=== PATIENT | male | born 1940 | race Caucasian/White ===

== ENCOUNTER 2023-10-29 23:02 | Observation (INO) ==
[2023-10-29] MEDS ORDERED: SODIUM CHLORIDE 0.9% 1,000 ML IV SCH (23:45)
[2023-10-30] LABS: Basophils # (auto) 0.03 K/uL (0.00-0.20); Basophils % (auto) 0.5 %; Eosinophils # (auto) 0.14 K/uL (0.00-0.50); Eosinophils % (auto) 2.4 %; Hematocrit (blood only) 39.3 % (42.0-52.0); Hemoglobin 13.3 g/dl (14.0-18.0); Immature Granulocytes # (auto) 0.02 K/uL (0.01-0.20); Immature Granulocytes % (auto) 0.3 %; Lymphocytes # (auto) 0.64 K/uL (1.20-3.40); Lymphocytes % (auto) 10.9 %; Mean Corpuscular Hemoglobin 30.1 pg (25.0-34.0); Mean Corpuscular Hgb Conc 33.8 g/dL (32.0-36.0); Mean Corpuscular Volume 88.9 fL (80.0-100.0); Mean Platelet Volume 9.9 fL (9.4-12.4); Monocytes # (auto) 0.62 K/uL (0.11-0.59); Monocytes % (auto) 10.5 %; Neutrophils # (auto) 4.43 K/uL (1.40-6.50); Neutrophils % (auto) 75.4 %; Platelet Count 173 K/uL (130-400); RDW Coefficient of Variation 14.1 % (11.5-14.5); RDW Standard Deviation 45.6 fL (36.4-46.3); Red Blood Count 4.42 M/uL (4.70-6.10); White Blood Count 5.88 K/ul (4.8-10.8)
--- NOTE | 2023-10-30 00:35 | Emergency Department Note ---
Impression & Plan Generalized weakness, Fall, CHI (closed head injury) ED Provider Note NAME: JOHN BROWN AGE: 83 SEX: Male INFORMANT: Patient and ED PROVIDER(S): Shaun Walters MD CHIEF COMPLAINT: Fall PLAN: Disposition: admitted Outpatient prescription management: none Referral: none MEDICAL DECISION MAKING: Patient presented with weakness and fall. CT negative. Labs unremarkable except elevation of cardiac troponin. Biofire positive for Covid 19. UA seems more contaminated in light of no symptoms. Event concerning given the weakness, new Covid and elevated troponin. Consulted with Dr. Eldridge for admission. Care/management discussed with: spring encaser Level of care consideration(s): After review of the information above and other included data, I feel the patient requires escalation of care to admission. Triage Nursing notes: reviewed and agree them. Vital Signs: reviewed and remarkable for no significant abnormalities Additional History obtained from: Chronic Medical/Social Conditions affecting care: CAD Prior/ Outside/ External records reviewed: none Differential Diagnosis: Infection, dehydration, metabolic abnormality, hypo/hyperglycemia, electrolyte disturbance, anemia, hypoxia, cardiac sources, intracerebral event, toxicologic, neurologic, as well as other pathologies. Diagnostics, independently interpreted by me: EC lead reveals NSR at 100 bpm. LAD, NSIVCD Cardiac Monitoring: Cardiac monitoring ordered by me: The patient was placed on continuous cardiac monitoring and observed. It revealed a normal sinus rhythm at 94 beats per minute without ectopy or evidence of dysrhythmia. Medical decision rules: none Imaging studies: CXR negative for fx, ptx or PNA Head Ct without traumatic findings. HPI: 83 year old Male arrives for evaluation of a fall.This started just prior to arrival. Patient states that he was out in his wood shed and bent over. He lost his balance and fell forward. Hit the top of his head. Patient also notes a fall last week where he struck the back of his head. Patient felt generally weak and could not get up. All day today he has felt under the weather. He felt like he was coming down with something. The patient also notes the following associated symptoms, He has had a cough. Patient also had 1 episode of vomiting in the ambulance. He states that he was bouncing around quite a bit and that made him stomach sick. The patient has been given Zofran for relieving factors. Current pain is rated as 0/10. Pt denies LOC, headache, fevers, chills, diaphoresis, visual changes, neck pain, chest pain, breathing difficulties, abdominal pain, back pain, melena, hematochezia, urinary symptoms, numbness, focal weakness, lymphadenopathy, rash, or other complaints. PAST MEDICAL HISTORY: See Below, CAD, hypertension PAST SURGICAL HISTORY: See Below, SOCIAL HISTORY: See Below, HOME MEDICATIONS: See Below ALLERGIES: See Below VITALS: See Below PHYSICAL EXAMINATION: GENERAL: Awake, tired-appearing, in no distress HENT: Normocephalic, atraumatic. Oropharynx unremarkable. EYES: Normal conjunctiva. Sclera non-icteric. NECK: Inspection normal. Non-tender. Supple. No nuchal rigidity. FROM. No masses. RESPIRATORY: Clear to auscultation. No wheezes. No rales. Normal respiratory effort. CARDIAC: Normal rate. Normal rhythm. No murmurs. No rubs. Extremities warm and well perfused. Pulses equal. No JVD. GI: Soft, non-distended. No tenderness to palpation. No rebound or guarding. No masses. RECTAL: Deferred. MUSCULOSKELETAL: Atraumatic. Chest examination reveals no tenderness. The back is symmetrical on inspection without obvious abnormality. There is no CVA tenderness to palpation. No joint edema. LOWER EXTREMITIES: Calves are equal size bilaterally and non-tender. No edema. No discoloration. NEURO: Normal sensorium. No sensory or motor deficits noted. SKIN: No rash or jaundice noted. PROCEDURES: none CRITICAL CARE: none OBSERVATION NOTE: none Past Med/Surg History Medical History BPH (benign prostatic hyperplasia) CAD (coronary artery disease) Kidney stones GERD (gastroesophageal reflux disease) Myocardial Infarction Hyperlipidemia Hypertension Surgical History History of colonoscopy History of cystoscopy History of lithotripsy History of basal cell carcinoma (BCC) excision History of squamous cell carcinoma excision History of open reduction and internal fixation (ORIF) procedure History of arthroscopy History of tooth extraction History of cardiac cath Family History Grandmother (Maternal) Family history of diabetes mellitus Sister Breast cancer Father Myocardial infarction Other Cancer Heart disease Denies family history of Ovarian cancer Prostate cancer Lung cancer Colorectal cancer Social History Smoking Status: Never smoker Second Hand Exposure: No; Do You Dip or Chew Tobacco: No; Hx Alcohol Use: No Hx Substance Use: No Preferred Language: Sami Communication Ability: Effective Visual Impairment: No Limitations Airplane Fueler Required: No Beliefs That Will Affect Care: None marital status: Current Living Situation: Spouse current occupational status: employed How many Children do You have: 4 Feels Safe at Home: Yes Childhood Exposure to Second-Hand Smoke: No caffeine: Yes Dental Care, Regularly: Yes Physical Activity Frequency: Does not Exercise Seatbelt Use: always Sunscreen Use: No Assistive Devices: None Allergies Allergies Allergy/AdvReac Type Severity Reaction Status Date / Time No Known Allergies Allergy Verified 08/26/23 09:37 Home Meds Home Medications Medication Instructions Recorded Confirmed cholecalciferol (vitamin D3) 50 1,000 units PO QAM 06/13/19 10/30/23 mcg (2,000 unit) capsule vitamin E 600 unit capsule 400 units PO QAM 06/13/19 10/30/23 ascorbic acid (vitamin C) 1,000 mg 1,000 mg PO QAM 08/29/19 10/30/23 tablet,extended release (Vitamin C ER) folic acid 400 mcg tablet 400 mcg PO QAM 08/29/19 10/30/23 magnesium 250 mg tablet 250 mg PO Q OTHER DAY 08/23/20 10/30/23 metoprolol succinate 100 mg 50 mg PO QAM 07/27/23 10/30/23 tablet,extended release 24 hr zinc 25 mg tablet 25 mg PO QAM 07/27/23 10/30/23 aspirin 81 mg tablet,delayed 81 mg PO DAILY 10/30/23 10/30/23 release Previous Rx's Medication Instructions Recorded pantoprazole 40 mg tablet,delayed 40 mg PO QAM #90 tabs 11/26/22 release atorvastatin 80 mg tablet 80 mg PO QAM #90 tabs 06/10/23 losartan 25 mg tablet 25 mg PO .every other day #45 tabs 08/31/23 nirmatrelvir 300 mg (150 mg See Rx Instructions PO .COMPLEX 10/31/23 x2)-ritonavir 100 mg tablet,dose #30 ea pack (Paxlovid) Results & Data (ED) Vital Signs Vital Signs - 24 hr 10/29/23 23:16 10/29/23 23:16 10/29/23 23:37 Temperature 37.1 C 37.1 C Temperature Source Oral Oral Pulse Rate 96 H 97 H Pulse Rate [Apical] 94 H Pulse Rhythm Regular Pulse Rhythm [Apical] Regular Pulse Strength Normal Pulse Strength [Apical] Normal Respiratory Rate 18 16 Respiratory Effort / Characteristics Non-Labored Non-Labored Respiratory Depth Normal Normal Blood Pressure 99/74 L Blood Pressure [Left Arm] 101/67 Blood Pressure Mean 82 Blood Pressure Mean [Left Arm] 78 Pulse Oximetry 96 96 Oxygen Delivery Method Room Air Room Air Sepsis Recent Fever Within 48 Hours No Sepsis New/Unexplained Change in Mental Status No Sepsis Action Taken by Nursing No Action Required 10/30/23 00:01 Temperature Temperature Source Pulse Rate 92 H Pulse Rate [Apical] Pulse Rhythm Regular Pulse Rhythm [Apical] Pulse Strength Pulse Strength [Apical] Respiratory Rate 18 Respiratory Effort / Characteristics Respiratory Depth Blood Pressure Blood Pressure [Left Arm] Blood Pressure Mean Blood Pressure Mean [Left Arm] Pulse Oximetry 92 Oxygen Delivery Method Room Air Sepsis Recent Fever Within 48 Hours Sepsis New/Unexplained Change in Mental Status Sepsis Action Taken by Nursing Laboratory Data 10/29/23 23:15 10/31/23 05:58 Lab Results 10/29/23 10/30/23 10/30/23 Range/Units 23:15 01:20 01:26 WBC 5.88 (4.8-10.8) K/ul RBC 4.42 L (4.70-6.10) M/uL Hgb 13.3 L (14.0-18.0) g/dl Hct 39.3 L (42.0-52.0) % MCV 88.9 (80.0-100.0) fL MCH 30.1 (25.0-34.0) pg MCHC 33.8 (32.0-36.0) g/dL RDW Std Deviation 45.6 (36.4-46.3) fL RDW Coeff of Michael 14.1 (11.5-14.5) % Plt Count 173 (130-400) K/uL MPV 9.9 (9.4-12.4) fL Immature Gran % (Auto) 0.3 % Neut % (Auto) 75.4 % Lymph % (Auto) 10.9 % [place] % (Auto) 10.5 % Eos % (Auto) 2.4 % Baso % (Auto) 0.5 % Neut # (Auto) 4.43 (1.40-6.50) K/uL Lymph # (Auto) 0.64 L (1.20-3.40) K/uL [place] # (Auto) 0.62 H (0.11-0.59) K/uL Eos # (Auto) 0.14 (0.00-0.50) K/uL Baso # (Auto) 0.03 (0.00-0.20) K/uL Immature Gran # (Auto) 0.02 (0.01-0.20) K/uL Sodium 135 L (136-145) mmol/L Potassium TNP 4.3 Chloride 105 (98-107) mmol/L Carbon Dioxide 23 (21-32) mmol/L Anion Gap 7 (3-11) BUN 14 (6-23) mg/dl Creatinine 0.96 (0.6-1.4) mg/dl Est Cr Clr Drug Dosing 59.3 ml/min Est GFR ( Amer) 85.0 ml/min Est GFR (Non-Af Amer) 73.3 ml/min BUN/Creatinine Ratio 14.6 (10-20) Glucose 120 H (70-99(Fasting)) mg/dl Calcium 8.8 (8.6-10.3) mg/dl Magnesium 1.8 (1.7-2.4) mg/dl Total Bilirubin 0.6 (0.2-1.0) mg/dl AST TNP 24 ALT 23 (7-52) U/L Alkaline Phosphatase 89 (34-104) U/L Troponin I High Sens 74.7 H* 235.8 H* D (0-20) pg/ml Total Protein 7.0 (6.0-8.3) gm/dl Albumin 4.0 (3.4-5.0) gm/dl Globulin 3.0 (2.5-4.0) gm/dl Albumin/Globulin Ratio 1.3 (0.9-2) TSH 2.575 (0.300-4.500) uIu/ml Urine Color Yellow Urine Appearance Clear (Clear) Urine pH 7.0 (4.5-7.5) Ur Specific [place] 1.020 (1.000-1.030) Urine Protein Trace H (Negative) Urine Glucose (UA) Negative (Negative) Urine Ketones Trace H (Negative) Urine Blood Negative (Negative) Urine Nitrite Negative (Negative) Urine Bilirubin Negative (Negative) Urine Urobilinogen Negative (Negative) Ur Leukocyte Esterase Trace H (Negative) Urine WBC (Auto) 5-10 H (0-5) /hpf Urine RBC (Auto) 0-4 (0-4) /hpf U Hyaline Cast (Auto) 1-5 (0-5) /lpf U Epithel Cells (Auto) 20-30 H (0-5) /lpf Urine Bacteria (Auto) 1+ H (Negative) Adenovirus (PCR) Not Detected (NotDetected) B. pertussis DNA (PCR) Not Detected (NotDetected) B.parapertussis DNA PCR Not Detected (NotDetected) C. pneumoniae DNA (PCR) Not Detected (NotDetected) Coronavirus OC43 (PCR) Not Detected (NotDetected) Coronavirus HKU1 (PCR) Not Detected (NotDetected) Coronavirus 229E (PCR) Not Detected (NotDetected) SARS-CoV-2 (PCR) DETECTED A* (NotDetected) Coronavirus NL63 (PCR) Not Detected (NotDetected) Human Metapneumovir PCR Not Detected (NotDetected) Influenza Type A (PCR) Not Detected (NotDetected) Influenza Type B (PCR) Not Detected (NotDetected) M. pneumoniae (PCR) Not Detected (NotDetected) Parainfluenza 1 (PCR) Not Detected (NotDetected) Parainfluenza 2 (PCR) Not Detected (NotDetected) Parainfluenza 3 (PCR) Not Detected (NotDetected) Parainfluenza 4 (PCR) Not Detected (NotDetected) RSV (PCR) Not Detected (NotDetected) Entero/Rhino (PCR) Not Detected (NotDetected) Administered Medications Discontinued Medications Ascorbic Acid ([facility]orbic Acid 500 Mg Tab) [facility] [place]: 11/29/23 08:59 Last Admin: 10/31/23 09:01 Dose: 1,000 mg Documented By: Admin: 10/30/23 09:06 Dose: 1,000 mg Documented By: NRB Aspirin (Aspirin Chew 324 Mg) 324 mg PO NOW STA Stop: 10/30/23 04:43 Last Admin: 10/30/23 05:28 Dose: 324 mg Documented By: RASHID Aspirin (Aspirin 81 Mg Ectab) 81 mg PO [facility] Stop: 11/30/23 08:59 Last Admin: 10/31/23 09:02 Dose: 81 mg Documented By: SS Atorvastatin Calcium (Atorvastatin 40 Mg Tab) 80 mg PO [facility] Stop: 11/29/23 08:59 Last Admin: 10/31/23 09:01 Dose: 80 mg Documented By: Admin: 10/30/23 09:06 Dose: 80 mg Documented By: SHADI Folic Acid (Folic Acid 400 Mcg Tab) 400 mcg PO [facility] Stop: 11/29/23 08:59 Last Admin: 10/31/23 09:02 Dose: 400 mcg Documented By: Admin: 10/30/23 09:07 Dose: 400 mcg Documented By: SHADI Heparin Sodium (Porcine) (Heparin Sod (Porcine) 1000 Unit/Ml) 3,000 units IV NOW STA Stop: 10/30/23 04:47 Last Admin: 10/30/23 05:32 Dose: 6,000 units Documented By: RASHID Co-signed By: HONG Sodium Chloride (Nss) 1,000 mls @ 125 mls/hr IV .Q8H [facility] Stop: 10/30/23 07:44 Last Infusion: 10/30/23 06:32 Dose: Infused Documented By: Infusion: 10/30/23 05:21 Dose: 0 mls/hr Documented By: Admin: 10/30/23 00:33 Dose: 125 mls/hr Documented By: AGUSTIN Potassium Chloride/Sodium Chloride (Normal Saline W/20 Meq Kcl) 20 meq in 1,000 mls @ 80 mls/hr IV .[id number] [facility]; Protocol Stop: 10/30/23 16:29 Last Infusion: 10/30/23 17:58 Dose: Infused Documented By: Admin: 10/30/23 05:28 Dose: 80 mls/hr Documented By: RASHID Heparin Sodium/Dextrose (Heparin Sodium/Dextrose) 25,000 units in 500 mls @ 0 mls/hr IV .Q0M [facility]; Protocol Stop: 11/29/23 04:29 Last Titration: 10/30/23 16:34 Dose: Infused Documented By: SEBASTIAN Co-signed By: HELLEN Titration: 10/30/23 13:12 Dose: 0 units/hr, 0 mls/hr Documented By: SHADI Co-signed By: RABIA Admin: 10/30/23 05:33 Dose: 1,300 units/hr, 26 mls/hr Documented By: RASHID Co-signed By: HONG Dexamethasone 6 mg/ Syringe 1.5 mls @ 1 mls/min IV DAILY [facility] Stop: 11/29/23 04:29 Last Admin: 10/31/23 08:59 Dose: 1 mls/min Documented By: Admin: 10/30/23 05:28 Dose: 1 mls/min Documented By: RASHID Remdesivir 200 mg/ Sodium (Chloride) 250 mls @ 125 mls/hr IV ONE ONE; Protocol Stop: 10/30/23 06:44 Last Infusion: 10/30/23 07:30 Dose: Infused Documented By: Admin: 10/30/23 05:30 Dose: 125 mls/hr Documented By: RASHID Losartan Potassium (Losartan Potassium 25 Mg Tab) 25 mg PO Q48H [facility] Stop: 11/29/23 08:59 Last Admin: 10/30/23 09:07 Dose: 25 mg Documented By: SHADI Magnesium Oxide (Magnesium Oxide 400 Mg Tab) 200 mg PO Q48H [facility] Stop: 11/29/23 08:59 Last Admin: 10/30/23 09:07 Dose: 200 mg Documented By: SHADI Metoprolol Succinate (Metoprolol Succ 50mg Ext Rel Tab) 50 mg PO QAM [facility] Stop: 11/29/23 08:59 Last Admin: 10/31/23 10:07 Dose: Not Given Documented By: Admin: 10/30/23 09:07 Dose: 50 mg Documented By: SHADI Pantoprazole Sodium (Pantoprazole 40 Mg Tab) 40 mg PO QAM [facility] Stop: 11/29/23 08:59 Last Admin: 10/31/23 09:00 Dose: 40 mg Documented By: Admin: 10/30/23 09:08 Dose: 40 mg Documented By: SHADI Vitamin D (Cholecalciferol 1,000 Units 25 Mcg Tab) 1,000 units PO QAM [facility] Stop: 11/29/23 08:59 Last Admin: 10/31/23 09:00 Dose: 1,000 units Documented By: Admin: 10/30/23 09:06 Dose: 1,000 units Documented By: SHADI Vitamin E (Tocopheryl, Dl-Alpha 100 Units 67 Mg Cap) 400 units PO QAM [facility] Stop: 11/29/23 08:59 Last Admin: 10/31/23 09:00 Dose: 400 units Documented By: Admin: 10/30/23 09:06 Dose: 400 units Documented By: SHADI Zinc Sulfate (Zinc Sulfate 220 Mg Capsule) [facility] [place]: 11/29/23 08:59 Last Admin: 10/31/23 09:01 Dose: 220 mg Documented By: Admin: 10/30/23 09:08 Dose: 220 mg Documented By: SHADI Discharge Plan Visit Data Chief Complaint: Fall Stated Complaint: Fall, Hit Head, Weakness ED Provider: Shaun Walters Discharge Problem: Generalized weakness, Fall, CHI (closed head injury) Patient Disposition: Admitted As Inpatient Discharge Instructions Interventions: ED Discharge Assessment Last Done: 10/30/23 06:29
[2023-10-30 00:37] LABS: Alanine Aminotransferase 23 U/L (7-52); Albumin Globulin Ratio 1.3 (0.9-2); Alkaline Phosphatase 89 U/L (34-104); Anion Gap 7 (3-11); BUN Creatinine Ratio 14.6 (10-20); Bilirubin,Total 0.6 mg/dl (0.2-1.0); Blood Urea Nitrogen 14 mg/dl (6-23); Calcium 8.8 mg/dl (8.6-10.3); Carbon Dioxide 23 mmol/L (21-32); Chloride 105 mmol/L (98-107); Creatinine Clr Calc Pharmacy 59.3 ml/min; Est GFR (Non-African American) 73.3 ml/min; Glucose 120 mg/dl (70-99(Fasting)); Magnesium 1.8 mg/dl (1.7-2.4); Sodium 135 mmol/L (136-145); Thyroid Stimulating Hormone 2.575 uIu/ml (0.300-4.500); Troponin I High Sensitivity 74.7 pg/ml (0-20)
--- NOTE | 2023-10-30 01:11 | CT Scan Report ---
Exam(s): CT C SPINE EXAM: CT Cervical Spine Without Intravenous Contrast CLINICAL HISTORY: fall. TECHNIQUE: Axial computed tomography images of the cervical spine without intravenous contrast. CTDI is 24.43 mGy and DLP is 498.02 mGy-cm. Automated exposure control was utilized for the study. A dose lowering technique was utilized adhering to the principles of ALARA. COMPARISON: No relevant prior studies available. FINDINGS: Vertebrae: The vertebral bodies are intact without acute osseous traumatic injury. No anterolisthesis or retrolisthesis is identified. The facet joints are well aligned without subluxation or dislocation. The pedicles, transverse processes and spinous processes are intact. Disc marginal hypertrophic osteophyte changes, most prominent at C5-C6 level. Discs/spinal canal/neural foramina: No acute findings. No osseous spinal canal stenosis. Soft tissues: Incidental calcification of the nuchal ligament. IMPRESSION: No acute osseous traumatic injury or significant abnormal alignment involving the cervical spine. Incidental chronic degenerative changes noted. Electronically signed by: Gil Craven MD 10/30/23 01:10 AM
--- NOTE | 2023-10-30 01:12 | CT Scan Report ---
Exam(s): CT HEAD Without Contrast EXAM: CT Head Without Intravenous Contrast CLINICAL HISTORY: fall, chI, anticoagulation. TECHNIQUE: Axial computed tomography images of the head/brain without intravenous contrast. CTDI is 46.31 mGy and DLP is 799.24 mGy-cm. Automated exposure control was utilized for the study. A dose lowering technique was utilized adhering to the principles of ALARA. COMPARISON: No relevant prior studies available. FINDINGS: Brain: No intracranial hemorrhage. No significant mass effect. No evidence for cortical infarct. Mild prominence of cerebral sulci and sylvian fissures. Deep white matter hypodense changes noted. Ventricles: Unremarkable. No ventriculomegaly. Bones/joints: Unremarkable. No acute fracture. Soft tissues: No significant overlying acute traumatic soft tissue abnormality. No radiopaque foreign body. Sinuses: Unremarkable as visualized. No acute sinusitis. Mastoid air cells: Unremarkable as visualized. No mastoid effusion. IMPRESSION: No acute intracranial process identified. Electronically signed by: Gil Craven MD 10/30/23 01:11 AM
[2023-10-30 01:54] LABS: Appearance Urine Clear (Clear); Bacteria Urine Automated 1+ (Negative); Bilirubin Urine Negative (Negative); Blood Urine Negative (Negative); Color Urine Yellow; Epithelial Cell Urine Auto 20-30 /lpf (0-5); Glucose Urine UA Negative (Negative); Ketones Urine Trace (Negative); Leukocyte Esterase Urine Trace (Negative); Nitrite Urine Negative (Negative); Protein Urine Trace (Negative); RBC Urine Automated 0-4 /hpf (0-4); Urobilinogen Urine Negative (Negative)
[2023-10-30 02:07] LABS: Potassium 4.3 mmol/L (3.5-5.1)
[2023-10-30 02:38] LABS: Adenovirus PCR Not Detected (NotDetected); Bordetella parapertussis PCR Not Detected (NotDetected); Bordetella pertussis PCR Not Detected (NotDetected); Chlamydia pneumoniae PCR Not Detected (NotDetected); Coronavirus 229E PCR Not Detected (NotDetected); Coronavirus HKU1 PCR Not Detected (NotDetected); Coronavirus NL63 PCR Not Detected (NotDetected); Coronavirus OC43PCR Not Detected (NotDetected); Human Metapneumovirus PCR Not Detected (NotDetected); Influenza A PCR Not Detected (NotDetected); Influenza B PCR Not Detected (NotDetected); Mycoplasma pneumoniae PCR Not Detected (NotDetected); Parainfluenza Virus 1 PCR Not Detected (NotDetected); Parainfluenza Virus 2 PCR Not Detected (NotDetected); Parainfluenza Virus 3 PCR Not Detected (NotDetected); Parainfluenza Virus 4 PCR Not Detected (NotDetected); Respiratory Syncytial VirusPCR Not Detected (NotDetected); Rhinovirus/Enterovirus PCR Not Detected (NotDetected)
[2023-10-30 02:55] LABS: Coronavirus CoV-2 (COVID19)PCR DETECTED (NotDetected)
--- NOTE | 2023-10-30 03:57 | History & Physical Report ---
Date of Service October 30, 2023 Assessment & Plan (1) NSTEMI (non-ST elevated myocardial infarction): (2) COVID-19: (3) Fall: (4) CAD (coronary artery disease): (5) Generalized weakness: (6) CHI (closed head injury): (7) Moderate left ventricular systolic dysfunction: (8) Myocardial Infarction: (9) Hypertension: (10) BPH with obstruction/lower urinary tract symptoms: (11) Hyperlipidemia: Plan NSTEMI/CAD/hypertension/history of WI 2011/status post 2 stents 2011/left vent ricular systolic dysfunction, with ejection fraction 40% on 12/03/21- The patient will be admitted to telemetry for serial cardiac enzymes, serial EKG's, cardiac rhythm monitoring and a 2-D echocardiogram with Dopplers. Initial troponin 74.7, with follow-up 235.8 Most recent vitals show heart rate 86 and blood pressure 109/75 Patient usually takes aspirin 81 mg daily, will give 324 mg now, and restart 81 mg on 10/31 Start heparin drip standard dose with max bolus 3000 units per protocol Echocardiogram to also assess for possible pericardial effusion, although no friction rub noted on examination Continue metoprolol succinate 50 mg every morning, losartan 25 mg p.o. every other day Consult cardiology COVID-19 infection- Patient primarily had symptoms of a cold. Close pulse ox recorded 92% on room air Primary symptoms also included fatigue and generalized weakness, which may also signal a primary heart issue Give dexamethasone 6 mg IV now and every morning Remdesivir IV per protocol, and can then be discharged on Paxlovid for remainder 5-day course Hyperlipidemia- Continue atorvastatin 80 mg daily History of Present Illness Chief Complaint: The patient presents to the emergency department after a ground-level fall while out working in his garage prior to arrival. He reports that he was leaning forward, lost his balance, and had difficulty getting back up. He reports that he has had cold symptoms over the past 24 hours or so, with a nonproductive cough as his primary symptom Primary Care Provider: Juventino Walls DO The patient is an 83-year-old male with a past medical history including CAD status post WI 12 years ago, hyperlipidemia, hypertension, GERD, BPH with LUTS, left ureteral stone, and moderate left ventricular systolic dysfunction with ejection fraction 40% on 12/03/2021. He presents to the emergency department after a fall, as he was leaning forward in his workshop. He reports that 1 week ago he fell backwards, and hit the back of his head without any persistent symptoms. He thinks that when he fell forward this time he may have hit the front of his head as well, but does not remember the exact scenario of how he fell. He did have difficulty getting himself up off the floor, and reports that he exerted himself a lot to do so. He also reports that over the past 24 hours or so he has had cold symptoms, with primarily symptoms of sinus congestion and cough due to sinus drainage. Significant laboratories: Troponin initially 74.7, with follow-up 235.8. [employer] is positive for COVID-19 CT head without contrast negative. CT scan cervical spine negative for acute process. Lowest pulse ox recorded was 92% on room air. Chest x-ray showed no acute findings, but did show cardiomegaly Allergies Allergy/AdvReac Type Severity Reaction Status Date / Time No Known Allergies Allergy Verified 08/26/23 09:37 Home Medications Medication Instructions Recorded Confirmed Type cholecalciferol (vitamin D3) 50 1,000 units PO QAM 06/13/19 10/30/23 History mcg (2,000 unit) capsule vitamin E 600 unit capsule 400 units PO QAM 06/13/19 10/30/23 History ascorbic acid (vitamin C) 1,000 mg 1,000 mg PO QAM 08/29/19 10/30/23 History tablet,extended release (Vitamin C ER) folic acid 400 mcg tablet 400 mcg PO QAM 08/29/19 10/30/23 History magnesium 250 mg tablet 250 mg PO Q OTHER DAY 08/23/20 10/30/23 History pantoprazole 40 mg tablet,delayed 40 mg PO QAM #90 tabs 11/26/22 10/30/23 Rx release atorvastatin 80 mg tablet 80 mg PO QAM #90 tabs 06/10/23 10/30/23 Rx metoprolol succinate 100 mg 50 mg PO QAM 07/27/23 10/30/23 History tablet,extended release 24 hr zinc 25 mg tablet 25 mg PO QAM 07/27/23 10/30/23 History losartan 25 mg tablet 25 mg PO .every other day #45 tabs 08/31/23 10/30/23 Rx aspirin 81 mg tablet,delayed 81 mg PO DAILY 10/30/23 10/30/23 History release Past Med/Surg History Medical History BPH (benign prostatic hyperplasia) CAD (coronary artery disease) Kidney stones GERD (gastroesophageal reflux disease) Myocardial Infarction Hyperlipidemia Hypertension Surgical History History of colonoscopy History of cystoscopy History of lithotripsy History of basal cell carcinoma (BCC) excision History of squamous cell carcinoma excision History of open reduction and internal fixation (ORIF) procedure History of arthroscopy History of tooth extraction History of cardiac cath Family History Grandmother (Maternal) Family history of diabetes mellitus Sister Breast cancer Father Myocardial infarction Other Cancer Heart disease Denies family history of Ovarian cancer Prostate cancer Lung cancer Colorectal cancer Social History Smoking Status: Never smoker Second Hand Exposure: No; Do You Dip or Chew Tobacco: No; Hx Alcohol Use: No Hx Substance Use: No Preferred Language: Kazakh Communication Ability: Effective Visual Impairment: No Limitations Retail Event Coordinator Required: No Beliefs That Will Affect Care: None marital status: Current Living Situation: Spouse current occupational status: employed How many Children do You have: 4 Feels Safe at Home: Yes Childhood Exposure to Second-Hand Smoke: No caffeine: Yes Dental Care, Regularly: Yes Physical Activity Frequency: Does not Exercise Seatbelt Use: always Sunscreen Use: No Assistive Devices: None Review of Systems Review of Systems: The patient denies chest pain, palpitations, shortness of breath, dyspnea on exertion, lower extremity swelling, sore throat, fevers, chills, sweats, weight change, nausea, vomiting, diarrhea , constipation, abdominal pain, pelvic pain, blood in urine or stool, dysuria, urinary frequency or urgency, headache, memory loss, loss of consciousness, rash, abnormal bruising or bleeding, focal or generalized weakness, numbness or tingling in arms or legs, generalized arthralgias or myalgias, back or neck pain, or night sweats. The review of systems is otherwise negative other than for that already noted above, and at least 10 systems have been reviewed. Physical Exam Physical Exam: The patient is awake, alert and oriented 3, well developed and well nourished, normocephalic and atraumatic, lying in bed and in no acute distress. HEENT--PERRL, EOMI, mucous membranes and oropharynx normal Neck--supple. No JVD. No bruits. Thyroid normal, trachea midline, no adenopathy. Heart--normal S1 and S2. No murmurs, rubs or gallops. Lungs--clear bilaterally, no respiratory distress, no accessory muscle use. Abdomen--normal bowel sounds and soft. Nontender. Nondistended, no hernias or masses, no organomegaly. Extremities--no cyanosis or clubbing. No edema. Dermatologic--normal skin turgor, normal color, no abnormal lymph nodes, no rash. Neurologic--cranial nerves II through XII grossly intact. Rheumatologic--normal range of motion. Psychiatric--normal affect. Results & Data Results & Data Vital Signs (Past 12 Hours) Vital Signs Temp Pulse Pulse Resp BP BP Pulse Ox 10/30/23 02:30 90 23 100/70 93 10/30/23 02:00 91 H 16 111/68 94 10/30/23 01:30 95 H 16 107/72 96 10/30/23 01:00 91 H 15 113/71 93 10/30/23 00:30 89 11 L 115/73 93 10/30/23 00:01 92 H 18 92 10/30/23 00:00 93 H 28 H 85/64 L 93 10/29/23 23:38 102 H 27 H 107/72 96 10/29/23 23:37 97 H 10/29/23 23:16 37.1 C 94 H 16 101/67 96 10/29/23 23:16 37.1 C 96 H 18 99/74 L 96 O2 Del Method 10/30/23 02:30 10/30/23 02:00 10/30/23 01:30 10/30/23 01:00 10/30/23 00:30 10/30/23 00:01 Room Air 10/30/23 00:00 10/29/23 23:38 10/29/23 23:37 10/29/23 23:16 Room Air 10/29/23 23:16 Room Air Laboratory Results Laboratory Results WBC 5.88 K/ul (4.8-10.8) 10/29/23 23:15 RBC 4.42 M/uL (4.70-6.10) L 10/29/23 23:15 Hgb 13.3 g/dl (14.0-18.0) L 10/29/23 23:15 Hct 39.3 % (42.0-52.0) L 10/29/23 23:15 MCV 88.9 fL (80.0-100.0) 10/29/23 23:15 MCH 30.1 pg (25.0-34.0) 10/29/23 23:15 MCHC 33.8 g/dL (32.0-36.0) 10/29/23 23:15 RDW Std Deviation 45.6 fL (36.4-46.3) 10/29/23 23:15 RDW Coeff of Michael 14.1 % (11.5-14.5) 10/29/23 23:15 Plt Count 173 K/uL (130-400) 10/29/23 23:15 MPV 9.9 fL (9.4-12.4) 10/29/23 23:15 Immature Gran % (Auto) 0.3 % 10/29/23 23:15 Neut % (Auto) 75.4 % 10/29/23 23:15 Lymph % (Auto) 10.9 % 10/29/23 23:15 Arthur % (Auto) 10.5 % 10/29/23 23:15 Eos % (Auto) 2.4 % 10/29/23 23:15 Baso % (Auto) 0.5 % 10/29/23 23:15 Neut # (Auto) 4.43 K/uL (1.40-6.50) 10/29/23 23:15 Lymph # (Auto) 0.64 K/uL (1.20-3.40) L 10/29/23 23:15 Arthur # (Auto) 0.62 K/uL (0.11-0.59) H 10/29/23 23:15 Eos # (Auto) 0.14 K/uL (0.00-0.50) 10/29/23 23:15 Baso # (Auto) 0.03 K/uL (0.00-0.20) 10/29/23 23:15 Immature Gran # (Auto) 0.02 K/uL (0.01-0.20) 10/29/23 23:15 Sodium 135 mmol/L (136-145) L 10/29/23 23:15 Potassium 4.3 mmol/L (3.5-5.1) 10/30/23 01: Chloride 105 mmol/L (98-107) 10/29/23 23:15 Carbon Dioxide 23 mmol/L (21-32) 10/29/23 23:15 Anion Gap 7 (3-11) 10/29/23 23:15 BUN 14 mg/dl (6-23) 10/29/23 23:15 Creatinine 0.96 mg/dl (0.6-1.4) 10/29/23 23:15 Est Cr Clr Drug Dosing 59.3 ml/min 10/29/23 23:15 Est GFR ( Amer) 85.0 ml/min 10/29/23 23:15 Est GFR (Non-Af Amer) 73.3 ml/min 10/29/23 23:15 BUN/Creatinine Ratio 14.6 (10-20) 10/29/23 23:15 Glucose 120 mg/dl (70-99(Fasting)) H 10/29/23 23:15 Calcium 8.8 mg/dl (8.6-10.3) 10/29/23 23:15 Magnesium 1.8 mg/dl (1.7-2.4) 10/29/23 23:15 Total Bilirubin 0.6 mg/dl (0.2-1.0) 10/29/23 23:15 AST 24 U/L (13-39) 10/30/23 01: ALT 23 U/L (7-52) 10/29/23 23:15 Alkaline Phosphatase 89 U/L (34-104) 10/29/23 23:15 Troponin I High Sens 235.8 pg/ml (0-20) H* D 10/30/23 01: Total Protein 7.0 gm/dl (6.0-8.3) 10/29/23 23:15 Albumin 4.0 gm/dl (3.4-5.0) 10/29/23 23:15 Globulin 3.0 gm/dl (2.5-4.0) 10/29/23 23:15 Albumin/Globulin Ratio 1.3 (0.9-2) 10/29/23 23:15 TSH 2.575 uIu/ml (0.300-4.500) 10/29/23 23:15 Urine Color Yellow 10/30/23 01:20 Urine Appearance Clear (Clear) 10/30/23 01:20 Urine pH 7.0 (4.5-7.5) 10/30/23 01:20 Ur Specific [place] 1.020 (1.000-1.030) 10/30/23 01:20 Urine Protein Trace (Negative) H 10/30/23 01:20 Urine Glucose (UA) Negative (Negative) 10/30/23 01:20 Urine Ketones Trace (Negative) H 10/30/23 01:20 Urine Blood Negative (Negative) 10/30/23 01:20 Urine Nitrite Negative (Negative) 10/30/23 01:20 Urine Bilirubin Negative (Negative) 10/30/23 01:20 Urine Urobilinogen Negative (Negative) 10/30/23 01:20 Ur Leukocyte Esterase Trace (Negative) H 10/30/23 01:20 Urine WBC (Auto) 5-10 /hpf (0-5) H 10/30/23 01:20 Urine RBC (Auto) 0-4 /hpf (0-4) 10/30/23 01:20 U Hyaline Cast (Auto) 1-5 /lpf (0-5) 10/30/23 01:20 U Epithel Cells (Auto) 20-30 /lpf (0-5) H 10/30/23 01:20 Urine Bacteria (Auto) 1+ (Negative) H 10/30/23 01:20 Adenovirus (PCR) Not Detected (NotDetected) 10/30/23 01:20 B. pertussis DNA (PCR) Not Detected (NotDetected) 10/30/23 01:20 B.parapertussis DNA PCR Not Detected (NotDetected) 10/30/23 01:20 C. pneumoniae DNA (PCR) Not Detected (NotDetected) 10/30/23 01:20 Coronavirus OC43 (PCR) Not Detected (NotDetected) 10/30/23 01:20 Coronavirus HKU1 (PCR) Not Detected (NotDetected) 10/30/23 01:20 Coronavirus 229E (PCR) Not Detected (NotDetected) 10/30/23 01:20 SARS-CoV-2 (PCR) DETECTED (NotDetected) A* 10/30/23 01:20 Coronavirus NL63 (PCR) Not Detected (NotDetected) 10/30/23 01:20 Human Metapneumovir PCR Not Detected (NotDetected) 10/30/23 01:20 Influenza Type A (PCR) Not Detected (NotDetected) 10/30/23 01:20 Influenza Type B (PCR) Not Detected (NotDetected) 10/30/23 01:20 M. pneumoniae (PCR) Not Detected (NotDetected) 10/30/23 01:20 Parainfluenza 1 (PCR) Not Detected (NotDetected) 10/30/23 01:20 Parainfluenza 2 (PCR) Not Detected (NotDetected) 10/30/23 01:20 Parainfluenza 3 (PCR) Not Detected (NotDetected) 10/30/23 01:20 Parainfluenza 4 (PCR) Not Detected (NotDetected) 10/30/23 01:20 RSV (PCR) Not Detected (NotDetected) 10/30/23 01:20 Entero/Rhino (PCR) Not Detected (NotDetected) 10/30/23 01:[address] 10/29/23 23:44 Exam(s): CT C SPINE EXAM: CT Cervical Spine Without Intravenous Contrast CLINICAL HISTORY: fall. TECHNIQUE: Axial computed tomography images of the cervical spine without intravenous contrast. CTDI is 24.43 mGy and DLP is 498.02 mGy-cm. Automated exposure control was utilized for the study. A dose lowering technique was utilized adhering to the principles of ALARA. COMPARISON: No relevant prior studies available. FINDINGS: Vertebrae: The vertebral bodies are intact without acute osseous traumatic injury. No anterolisthesis or retrolisthesis is identified. The facet joints are well aligned without subluxation or dislocation. The pedicles, transverse processes and spinous processes are intact. Disc marginal hypertrophic osteophyte changes, most prominent at C5-C6 level. Discs/spinal canal/neural foramina: No acute findings. No osseous spinal canal stenosis. Soft tissues: Incidental calcification of the nuchal ligament. IMPRESSION: No acute osseous traumatic injury or significant abnormal alignment involving the cervical spine. Incidental chronic degenerative changes noted. Electronically signed by: Gil Craven MD 10/30/23 01:[address] 10/29/23 23:44 Exam(s): CT HEAD Without Contrast EXAM: CT Head Without Intravenous Contrast CLINICAL HISTORY: fall, chI, anticoagulation. TECHNIQUE: Axial computed tomography images of the head/brain without intravenous contrast. CTDI is 46.31 mGy and DLP is 799.24 mGy-cm. Automated exposure control was utilized for the study. A dose lowering technique was utilized adhering to the principles of ALARA. COMPARISON: No relevant prior studies available. FINDINGS: Brain: No intracranial hemorrhage. No significant mass effect. No evidence for cortical infarct. Mild prominence of cerebral sulci and sylvian fissures. Deep white matter hypodense changes noted. Ventricles: Unremarkable. No ventriculomegaly. Bones/joints: Unremarkable. No acute fracture. Soft tissues: No significant overlying acute traumatic soft tissue abnormality. No radiopaque foreign body. Sinuses: Unremarkable as visualized. No acute sinusitis. Mastoid air cells: Unremarkable as visualized. No mastoid effusion. IMPRESSION: No acute intracranial process identified. Electronically signed by: Gil Craven MD 10/30/23 01:11 AM Code Status & VTE Plan Code Status Full code PG Care Time/CCT Total # of Minutes Spent Total Time Spent with Patient: Total time spent is greater than 50% in coordination of care (as documented) at patient's floor/unit and/or counseling patient: Coding Level of Care Code 55447 INT INP/OBS CARE 3/75MIN Diagnoses NSTEMI (non-ST elevated myocardial infarction) I21.4 COVID-19 U07.1 Fall W19.XXXA CAD (coronary artery disease) I25.10 Generalized weakness R53.1 CHI (closed head injury) S09.90XA Moderate left ventricular systolic dysfunction I51.9 Myocardial Infarction I21.9 Hypertension I10 BPH with obstruction/lower urinary tract symptoms N40.1; N13.8 Hyperlipidemia E78.5
[2023-10-30] MEDS ORDERED: NSS + 20MEQ KCL 20 MEQ/1,000 ML BAG IV SCH (04:00)
[2023-10-30] MEDS ORDERED: Heparin IV Adult Wt-Based Standard w/ INITIAL Bolus Protocol IV SCH (04:10)
[2023-10-30] MEDS ORDERED: HEPARIN SODIUM/DEXTROSE 25,000 UNITS/500 ML BAG IV SCH (04:30)
[2023-10-30] MEDS ORDERED: ASPIRIN CHEW 324 MG PO STA (04:42)
[2023-10-30] MEDS ORDERED: REMDESIVIR 200 MG in SODIUM CHLORIDE 0.9% 210 ML IV ONE (04:45)
[2023-10-30] MEDS ORDERED: HEPARIN SOD (PORCINE) 1000 UNIT/ML IV STA (04:46)
[2023-10-30] MEDS: dexAMETHasone 6 MG in SYRINGE 0 ML IV SCH (05:28)
[2023-10-30 05:58] LABS: Prothrombin Time 11.4 Seconds (9.0-12.0)
[2023-10-30] MEDS ORDERED: ACETAMINOPHEN 325 MG TAB PO PRN (06:28)
[2023-10-30] MEDS ORDERED: ONDANSETRON INJ 2 MG/ML 2 ML VIAL IV PRN (06:28)
--- NOTE | 2023-10-30 07:00 | XRay Report ---
XR chest 1V portable CLINICAL HISTORY: weakness COMPARISON STUDY: Chest radiograph July 27, 2023. FINDINGS: Lung volumes are normal. Lungs are clear. There is no pneumothorax or pleural effusion. The re is mild cardiomegaly. Mediastinal contours are normal. There is no evidence for pulmonary edema. IMPRESSION: No acute cardiopulmonary findings. No significant change in appearance of the chest. ACT 112: Negative or not required by law. Electronically signed by: López Velasco M.D. 10/30/2023 6:59 AM
[2023-10-30] MEDS ORDERED: LOSARTAN POTASSIUM 25 MG TAB PO SCH (09:00)
[2023-10-30] MEDS ORDERED: MAGNESIUM OXIDE 400 MG TAB PO SCH (09:00)
[2023-10-30] MEDS ORDERED: ASPIRIN 81 MG ECTAB PO SCH (09:00)
[2023-10-30] MEDS: TOCOPHERYL, DL-ALPHA 100 UNITS 67 MG CAP PO SCH (09:06)
[2023-10-30] MEDS: ATORVASTATIN 40 MG TAB PO SCH (09:06)
[2023-10-30] MEDS: ASCORBIC ACID 500 MG TAB PO SCH (09:06)
[2023-10-30] MEDS: CHOLECALCIFEROL 25 MCG (1000 UNITS) TAB PO SCH (09:06)
[2023-10-30] MEDS: METOPROLOL SUCC 50MG EXT REL TAB PO SCH (09:07)
[2023-10-30] MEDS: FOLIC ACID 400 MCG TAB PO SCH (09:07)
[2023-10-30] MEDS: ZINC SULFATE 220 MG CAPSULE PO SCH (09:08)
[2023-10-30] MEDS: PANTOprazole 40 MG TAB PO SCH (09:08)
[2023-10-30 12:56] LABS: ANTI-Xa, UFH(UnfractionatedHep 1.12 IU/ml (0.3-0.7)
[2023-10-30] MEDS ORDERED: Nursing to Pharmacy Communication SCH (13:15)
--- NOTE | 2023-10-30 14:47 | Cardiology Consultation ---
Date of Consultation October 30, 2023 Assessment & Plan (1) Elevated troponin: (2) COVID-19: (3) CAD (coronary artery disease): Plan 1. Elevated troponin: This may be related to a period of inactivity and weakness after his fall. It is also possible is related to his COVID-19 infection. Very mild elevation overall. Not think this is indicative of an acute coronary syndrome. I will discontinue his heparin. He can continue his outpatient medical regimen and his viral syndrome can be treated accordingly. 2. Coronary disease: He continues be very active. Only symptom recently has been mild weakness likely associated with COVID-19 infection. He should continue aggressive secondary prevention with aspirin atorvastatin and metoprolol 3. Ischemic cardiomyopathy: Does have significantly reduced LV systolic function. No overt symptoms. Lung examination was normal. Chest x-ray was normal. He should continue his outpatient regimen which consists of metoprolol succinate and losartan. Consideration could be given to starting an SG LT 2 inhibitor as well 4. Mitral regurgitation: Mild. This can be followed over time History of Present Illness Reason for Consultation: Elevated troponin Requesting Physician: Schuyler Attending Physician: Dionne Dumont MD History of Present Illness The patient is an 83-year-old gentleman with history of coronary disease having suffered an acute myocardial infarction in 2011. At that time he had occlusion of the proximal LAD and underwent percutaneous intervention. He was noted subsequently to have motion abnormality reduced LV systolic function. He has been treated with medical therapy since that time. In general he is an active individual who is accustomed to moderate exertion. He generally speaking does not have symptoms coronary insufficiency or angina. Last evening he was trying to lift some would outdoors when he apparently lost his balance and fell forward. He had difficulty getting off of the ground and required assistance from his . Due to his generalized weakness EMS was summoned and he was brought to the hospital for evaluation. Patient states that he has not been feeling well for few days. Most of his symptoms involve fatigue with a nonproductive cough. No overt fevers or chills. No breathing difficulty. No chest pain. No sense of palpitations. Currently feeling well. Perhaps not 100%, instill somewhat fatigued. However still no symptoms of shortness of breath, chest pain or dizziness. Allergies Allergy/AdvReac Type Severity Reaction Status Date / Time No Known Allergies Allergy Verified 08/26/23 09:37 Home Medications Medication Instructions Recorded Confirmed Type cholecalciferol (vitamin D3) 50 1,000 units PO QAM 06/13/19 10/30/23 History mcg (2,000 unit) capsule vitamin E 600 unit capsule 400 units PO QAM 06/13/19 10/30/23 History ascorbic acid (vitamin C) 1,000 mg 1,000 mg PO QAM 08/29/19 10/30/23 History tablet,extended release (Vitamin C ER) folic acid 400 mcg tablet 400 mcg PO QAM 08/29/19 10/30/23 History magnesium 250 mg tablet 250 mg PO Q OTHER DAY 08/23/20 10/30/23 History pantoprazole 40 mg tablet,delayed 40 mg PO QAM #90 tabs 11/26/22 10/30/23 Rx release atorvastatin 80 mg tablet 80 mg PO QAM #90 tabs 06/10/23 10/30/23 Rx metoprolol succinate 100 mg 50 mg PO QAM 07/27/23 10/30/23 History tablet,extended release 24 hr zinc 25 mg tablet 25 mg PO QAM 07/27/23 10/30/23 History losartan 25 mg tablet 25 mg PO .every other day #45 tabs 08/31/23 10/30/23 Rx aspirin 81 mg tablet,delayed 81 mg PO DAILY 10/30/23 10/30/23 History release Patient History Medical History BPH (benign prostatic hyperplasia) CAD (coronary artery disease) Kidney stones GERD (gastroesophageal reflux disease) Myocardial Infarction Hyperlipidemia Hypertension Surgical History History of colonoscopy History of cystoscopy History of lithotripsy History of basal cell carcinoma (BCC) excision History of squamous cell carcinoma excision History of open reduction and internal fixation (ORIF) procedure History of arthroscopy History of tooth extraction History of cardiac cath Family History Grandmother (Maternal) Family history of diabetes mellitus Sister Breast cancer Father Myocardial infarction Other Cancer Heart disease Denies family history of Ovarian cancer Prostate cancer Lung cancer Colorectal cancer Social History Smoking Status: Never smoker Second Hand Exposure: No; Do You Dip or Chew Tobacco: No; Hx Alcohol Use: No Hx Substance Use: No Preferred Language: Lao Communication Ability: Effective Visual Impairment: No Limitations Editor House Organ Required: No Beliefs That Will Affect Care: None marital status: Current Living Situation: Spouse current occupational status: employed How many Children do You have: 4 Feels Safe at Home: Yes Safety Concerns: Feels Safe At This Time Childhood Exposure to Second-Hand Smoke: No caffeine: Yes Dental Care, Regularly: Yes Physical Activity Frequency: Does not Exercise Seatbelt Use: always Sunscreen Use: No Assistive Devices: None Review of Systems Review of Systems: Per HPI Physical Exam Physical Exam: The patient is alert and oriented. Mood and affect appeared normal. He answered all questions appropriately. HEENT: Pupils are equal and reactive to light and accommodation. Extraocular movements are intact. The sclerae are anicteric. Neuro: Cranial nerves intact Lungs: Clear to auscultation bilaterally. He has good air movement without use of accessory muscles. No rales wheezes or rhonchi. Cardiac: Heart demonstrates a regular rate and rhythm. Normal S1 and S2. Crescendo systolic murmur. Pulses: The patient has palpable radial pulses bilaterally that are equal in intensity Extremities: There was no evidence of hypoperfusion. There is no cyanosis or clubbing. There is no edema. Skin: I did not appreciate any rashes on examination today. Results & Data Vital Signs (Past 12 Hours) Vital Signs Temp Pulse Pulse Resp BP BP BP 10/30/23 12:01 36.3 C L 78 18 94/62 L 10/30/23 09:20 36.8 C 88 29 H 131/75 131/75 10/30/23 09:17 10/30/23 07:39 83 10/30/23 04:08 36.8 C 86 14 109/75 10/30/23 04:00 91 H 20 10/30/23 04:00 109/75 10/30/23 03:30 116/70 10/30/23 03:30 89 18 10/30/23 03:20 94 H 16 10/30/23 03:20 131/71 10/30/23 03:00 105/69 10/30/23 03:00 97 H 19 Pulse Ox Pulse Ox O2 Del Method O2 Del Method 10/30/23 12:01 97 Room Air 10/30/23 09:20 96 Room Air 10/30/23 09:17 96 Room Air 10/30/23 07:39 10/30/23 04:08 94 Room Air 10/30/23 04:00 95 10/30/23 04:00 10/30/23 03:30 10/30/23 03:30 94 10/30/23 03:20 10/30/23 03:20 10/30/23 03:00 10/30/23 03:00 94 Laboratory Results Abnormal Lab Results 10/29/23 10/30/23 10/30/23 23:15 01:20 01:26 WBC 5.88 RBC 4.42 L Hgb 13.3 L Hct 39.3 L MCV 88.9 MCH 30.1 MCHC 33.8 RDW Std Deviation 45.6 RDW Coeff of Michael 14.1 Plt Count 173 MPV 9.9 Immature Gran % (Auto) 0.3 Neut % (Auto) 75.4 Lymph % (Auto) 10.9 Amador % (Auto) 10.5 Eos % (Auto) 2.4 Baso % (Auto) 0.5 Neut # (Auto) 4.43 Lymph # (Auto) 0.64 L [place] # (Auto) 0.62 H Eos # (Auto) 0.14 Baso # (Auto) 0.03 Immature Gran # (Auto) 0.02 PT INR Heparin Anti-Xa, Unfract Sodium 135 L Potassium TNP 4.3 Chloride 105 Carbon Dioxide 23 Anion Gap 7 BUN 14 Creatinine 0.96 Est Cr Clr Drug Dosing 59.3 Est GFR ( Amer) 85.0 Est GFR (Non-Af Amer) 73.3 BUN/Creatinine Ratio 14.6 Glucose 120 H Calcium 8.8 Magnesium 1.8 Total Bilirubin 0.6 AST TNP 24 ALT 23 Alkaline Phosphatase 89 Troponin I High Sens 74.7 H* 235.8 H* D Total Protein 7.0 Albumin 4.0 Globulin 3.0 Albumin/Globulin Ratio 1.3 TSH 2.575 Urine Color Yellow Urine Appearance Clear Urine pH 7.0 Ur Specific [place] 1.020 Urine Protein Trace H Urine Glucose (UA) Negative Urine Ketones Trace H Urine Blood Negative Urine Nitrite Negative Urine Bilirubin Negative Urine Urobilinogen Negative Ur Leukocyte Esterase Trace H Urine WBC (Auto) 5-10 H Urine RBC (Auto) 0-4 U Hyaline Cast (Auto) 1-5 U Epithel Cells (Auto) 20-30 H Urine Bacteria (Auto) 1+ H Adenovirus (PCR) Not Detected B. pertussis DNA (PCR) Not Detected B.parapertussis DNA PCR Not Detected C. pneumoniae DNA (PCR) Not Detected Coronavirus OC43 (PCR) Not Detected Coronavirus HKU1 (PCR) Not Detected Coronavirus 229E (PCR) Not Detected SARS-CoV-2 (PCR) DETECTED A* Coronavirus NL63 (PCR) Not Detected Human Metapneumovir PCR Not Detected Influenza Type A (PCR) Not Detected Influenza Type B (PCR) Not Detected M. pneumoniae (PCR) Not Detected Parainfluenza 1 (PCR) Not Detected Parainfluenza 2 (PCR) Not Detected Parainfluenza 3 (PCR) Not Detected Parainfluenza 4 (PCR) Not Detected RSV (PCR) Not Detected Entero/Rhino (PCR) Not Detected 10/30/23 10/30/23 10/30/23 06:43 11:58 Unknown WBC RBC Hgb Hct MCV MCH MCHC RDW Std Deviation RDW Coeff of Michael Plt Count MPV Immature Gran % (Auto) Neut % (Auto) Lymph % (Auto) Amador % (Auto) Eos % (Auto) Baso % (Auto) Neut # (Auto) Lymph # (Auto) [place] # (Auto) Eos # (Auto) Baso # (Auto) Immature Gran # (Auto) PT 11.4 INR 1.0 Heparin Anti-Xa, Unfract 1.12 H* Sodium Potassium Chloride Carbon Dioxide Anion Gap BUN Creatinine Est Cr Clr Drug Dosing Est GFR ( Amer) Est GFR (Non-Af Amer) BUN/Creatinine Ratio Glucose Calcium Magnesium Total Bilirubin AST ALT Alkaline Phosphatase Troponin I High Sens 330.9 H* D Total Protein Albumin Globulin Albumin/Globulin Ratio TSH Urine Color Urine Appearance Urine pH Ur Specific [place] Urine Protein Urine Glucose (UA) Urine Ketones Urine Blood Urine Nitrite Urine Bilirubin Urine Urobilinogen Ur Leukocyte Esterase Urine WBC (Auto) Urine RBC (Auto) U Hyaline Cast (Auto) U Epithel Cells (Auto) Urine Bacteria (Auto) Adenovirus (PCR) B. pertussis DNA (PCR) B.parapertussis DNA PCR C. pneumoniae DNA (PCR) Coronavirus OC43 (PCR) Coronavirus HKU1 (PCR) Coronavirus 229E (PCR) SARS-CoV-2 (PCR) Coronavirus NL63 (PCR) Human Metapneumovir PCR Influenza Type A (PCR) Influenza Type B (PCR) M. pneumoniae (PCR) Parainfluenza 1 (PCR) Parainfluenza 2 (PCR) Parainfluenza 3 (PCR) Parainfluenza 4 (PCR) RSV (PCR) Entero/Rhino (PCR) Diagnostic Findings Chest x-ray obtained the time admission did not reveal any acute cardiopulmonary process Head CT obtained at the time of admission did not reveal Any acute intracranial process. ECG Additional Comments: EKG obtained the time admission revealed a sinus tachycardia with nonspecific interventricular conduction delay and voltage criteria for LVH. Unchanged from prior. PG Care Time/CCT Total # of Minutes Spent Total Time Spent with Patient: Total time spent is greater than 50% in coordination of care (as documented) at patient's floor/unit and/or counseling patient: Coding Level of Care Code 29813 INT INP/OBS CARE 3/75MIN Diagnoses Elevated troponin R79.89 COVID-19 U07.1 CAD (coronary artery disease) I25.10
--- NOTE | 2023-10-30 15:00 | XCELERA ---
[id number]
[2023-10-30 15:08] LABS: ANTI-Xa, UFH(UnfractionatedHep 0.97 IU/ml (0.3-0.7)
[2023-10-30 15:58] LABS: ANTI-Xa, UFH(UnfractionatedHep 0.53 IU/ml (0.3-0.7)
--- NOTE | 2023-10-30 17:30 | Electrocardiogram Report ---
Test Reason : Blood Pressure : / mmHG Vent. Rate : 100 BPM Atrial Rate : 100 BPM P-R Int : 156 ms QRS Dur : 130 ms QT Int : 346 ms P-R-T Axes : 058 -46 097 degrees QTc Int : 446 ms Normal sinus rhythm Left axis deviation Non-specific intra-ventricular conduction block Minimal voltage criteria for LVH, may be normal variant Abnormal ECG When compared with ECG of 27-JUL-2023 11:12, Vent. rate has increased BY 33 BPM Confirmed by Joe Saha ([id number]) on 10/30/2023 5:29:40 PM Referred By: REFERRED SELF Confirmed By:Geovany Saha
--- NOTE | 2023-10-30 17:41 | Communication Note ---
Date of Service: October 30, 2023 Please refer to the H&P dictated by Dr. Magallon earlier this morning for details of presentation on admission. In brief, the patient was working in his garage, was leaning forward, lost his balance and fell. He was having a difficult time getting up and thus he was brought into the emergency room. He was noted to be COVID-positive, his troponins were elevated and thus he was admitted. He was seen in consultation by cardiology who does not think that this is an acute coronary syndrome. I discontinued the heparin drip. Echocardiogram revie thu. Continue metoprolol and losartan. Continue aspirin, statin. This is most likely demand ischemia due to COVID 19, fall. First COVID-19 standpoint, he is being given Decadron and remdesivir. He is saturating 93% on room air.
[2023-10-31 06:40] LABS: Albumin Level 3.8 gm/dl (3.4-5.0); BUN Creatinine Ratio 20.4 (10-20); Est GFR (African American) 73.7 ml/min; Est GFR (Non-African American) 63.6 ml/min; Magnesium 1.9 mg/dl (1.7-2.4); Phosphorus 3.2 mg/dl (2.5-4.9); Potassium 4.1 mmol/L (3.5-5.1)
[2023-10-31] MEDS: dexAMETHasone 6 MG in SYRINGE 0 ML IV SCH (08:59)
[2023-10-31] MEDS: TOCOPHERYL, DL-ALPHA 100 UNITS 67 MG CAP PO SCH (09:00)
[2023-10-31] MEDS: PANTOprazole 40 MG TAB PO SCH (09:00)
[2023-10-31] MEDS: CHOLECALCIFEROL 25 MCG (1000 UNITS) TAB PO SCH (09:00)
[2023-10-31] MEDS ORDERED: ASPIRIN 81 MG ECTAB PO SCH (09:00)
[2023-10-31] MEDS: ATORVASTATIN 40 MG TAB PO SCH (09:01)
[2023-10-31] MEDS: ASCORBIC ACID 500 MG TAB PO SCH (09:01)
[2023-10-31] MEDS: ZINC SULFATE 220 MG CAPSULE PO SCH (09:01)
[2023-10-31] MEDS: FOLIC ACID 400 MCG TAB PO SCH (09:02)
[2023-10-31] MEDS: METOPROLOL SUCC 50MG EXT REL TAB PO SCH (10:07)
--- NOTE | 2023-10-31 10:25 | Electrocardiogram Report ---
Test Reason : Blood Pressure : / mmHG Vent. Rate : 071 BPM Atrial Rate : 071 BPM P-R Int : 164 ms QRS Dur : 134 ms QT Int : 388 ms P-R-T Axes : 064 -48 086 degrees QTc Int : 421 ms Normal sinus rhythm Left axis deviation Non-specific intra-ventricular conduction block Cannot rule out Septal infarct (cited on or before 31-OCT-2023) Abnormal ECG When compared with ECG of 29-OCT-2023 23:12, Nonspecific T wave abnormality, worse in Lateral leads Confirmed by Phill Sanchez ([id number]) on 10/31/2023 10:25:00 AM Referred By: REFERRED SELF Confirmed By:Phill Sanchez
--- NOTE | 2023-10-31 10:49 | Discharge Summary ---
Date of Service October 31, 2023 Admission HPI Per Admitting Provider The patient is an 83-year-old male with a past medical history including CAD status post [place] 12 years ago, hyperlipidemia, hypertension, GERD, BPH with LUTS, left ureteral stone, and moderate left ventricular systolic dysfunction with ejection fraction 40% on 12/03/2021. He presents to the emergency department after a fall, as he was leaning forward in his workshop. He reports that 1 week ago he fell backwards, and hit the back of his head without any persistent symptoms. He thinks that when he fell forward this time he may have hit the front of his head as well, but does not remember the exact scenario of how he fell. He did have difficulty getting himself up off the floor, and reports that he exerted himself a lot to do so. He also reports that over the past 24 hours or so he has had cold symptoms, with primarily symptoms of sinus congestion and cough due to sinus drainage. Significant laboratories: Troponin initially 74.7, with follow-up 235.8. [employer] is positive for COVID-19 CT head without contrast negative. CT scan cervical spine negative for acute process. Lowest pulse ox recorded was 92% on room air. Chest x-ray showed no acute findings, but did show cardiomegaly Admission Exam Per Admitting Provider The patient is awake, alert and oriented 3, well developed and well nourished, normocephalic and atraumatic, lying in bed and in no acute distress. HEENT--PERRL, EOMI, mucous membranes and oropharynx normal Neck--supple. No JVD. No bruits. Thyroid normal, trachea midline, no adenopathy. Heart--normal S1 and S2. No murmurs, rubs or gallops. Lungs--clear bilaterally, no respiratory distress, no accessory muscle use. Abdomen--normal bowel sounds and soft. Nontender. Nondistended, no hernias or masses, no organomegaly. Extremities--no cyanosis or clubbing. No edema. Dermatologic--normal skin turgor, normal color, no abnormal lymph nodes, no rash. Neurologic--cranial nerves II through XII grossly intact. Rheumatologic--normal range of motion. Psychiatric--normal affect. Principal Diagnosis COVID-19 infection causing generalized weakness Generalized weakness leading to fall Demand ischemia due to fall and COVID (noncardiac) Closed head injury as a result of the fall Discharge Exam General: Awake, conversant Heart: S1, S2/regular rate and rhythm, no murmur rubs or gallops Lungs: Clear to auscultation bilaterally. Normal effort Abdomen: Soft/nontender/nondistended. No hepatosplenomegaly Extremities: No clubbing/cyanosis. No edema Behavior: Appropriate, cooperative Discharge Data Allergies Allergy/AdvReac Type Severity Reaction Status Date / Time No Known Allergies Allergy Verified 08/26/23 09:37 Consultations 10/30/23 03:45 ED Decision to Admit Stat 10/30/23 06:28 Consult Cardiology Routine Ordered Studies 10/29/23 23:44 CT cervical spine wo con Stat CT head/brain wo con Stat Hospital Course (1) NSTEMI (non-ST elevated myocardial infarction): (2) COVID-19: (3) Fall: (4) CAD (coronary artery disease): (5) Generalized weakness: (6) CHI (closed head injury): (7) Moderate left ventricular systolic dysfunction: (8) Myocardial Infarction: (9) Hypertension: (10) BPH with obstruction/lower urinary tract symptoms: (11) Hyperlipidemia: Plan COVID-19 infection Patient was not hypoxic, short of breath, coughing Had fatigue and generalized weakness which led to the fall and closed head injury He was treated with Decadron and remdesivir for a brief period of time in the hospital Will discharge him on Paxlovid Demand ischemia Has cardiac enzymes were elevated Cardiology was consulted who did not think that this was cardiac Heparin drip was discontinued Cardiology recommended that we continue his usual cardiac medications for coronary artery disease and CHFrEF including aspirin, statin, metoprolol, losartan Generalized weakness, He is walking around in the room without any ambulatory issues He is very active at home Deemed stable for discharge today Total Time Total Time Spent Total Time Spent (In Minutes): 35 Discharge Plan Discharge Items Patient Disposition: Home - Self-Care Reason For Visit: NSTEMI, S/P FALL, COVID-19 Discharge Diagnosis: Elevated heart markers due to stress from fall and COVID COVID-19 infection Generalized weakness leading to fall Activity: Resume your previous activity Non-emergency contact: Primary Care Provider Call non-emergency contact if: you have any medication questions and your symptoms worsen Follow-up/Referrals: Juventino Walls DO [Primary Care Provider] - 11/11/23 11:00 am (Will see STORM Vanessa in Dr Walls's office) Diet: Heart Healthy Addtl Attending Provider Instructions: Advised to follow-up with PCP in 1 week Pending Studies at Discharge: No Stand-Alone Forms: My [facility] Medications and DC Order Prescriptions: New Paxlovid 300 mg (150 mg x 2)-100 mg tablets,dose pack See Rx Instructions .ROUTE .COMPLEX Qty: 30 0RF Rx Instructions: take TWO 150 mg tablets of nirmatrelvir with ONE 100 mg tablet of ritonavir twice daily for 5 days Continued pantoprazole 40 mg tablet,delayed release (DR/EC) 40 mg PO QAM Qty: 90 3RF losartan 25 mg tablet 25 mg PO .every other day Qty: 45 3RF magnesium 250 mg tablet 250 mg PO Q OTHER DAY vitamin E 600 unit capsule 400 units PO QAM cholecalciferol (vitamin D3) 2,000 unit capsule 1,000 units PO QAM Vitamin C 1,000 mg Tablet Extended Release 1,000 mg PO QAM folic acid 400 mcg Tablet 400 mcg PO QAM aspirin 81 mg Tablet,Delayed Release (Dr/Ec) 81 mg PO DAILY zinc 25 mg Tablet 25 mg PO QAM metoprolol succinate 100 mg tablet extended release 24 hr 50 mg PO QAM Held atorvastatin 80 mg tablet 80 mg PO QAM Qty: 90 3RF Hold Instructions: Resume on 11/06/23. Hold until course of Paxlovid completed, and then resume atorvastatin Discharge Orders: Discharge Order (Routine); Ordered 10/31/23 Ordered By: Dionne Dumont Admission Data Admit Date/Time: 10/30/23 04:23 Attending Provider: Dionne Dumont Admit Provider: Antolin Eldridge Primary Care Provider: Juventino Walls Other Providers: Antolin Eldridge; Joe Saha Other Interventions: Discharge Summary Assessment (RN) Last Done: 10/31/23 12:49 Coding Level of Care Code 99189 INP/OBS DISCH >30 MIN Diagnoses NSTEMI (non-ST elevated myocardial infarction) I21.4 COVID-19 U07.1 Fall W19.XXXA CAD (coronary artery disease) I25.10 Generalized weakness R53.1 CHI (closed head injury) S09.90XA Moderate left ventricular systolic dysfunction I51.9 Myocardial Infarction I21.9 Hypertension I10 BPH with obstruction/lower urinary tract symptoms N40.1; N13.8 Hyperlipidemia E78.5
[2023-10-31] MEDS ORDERED: REMDESIVIR 100 MG in SODIUM CHLORIDE 0.9% 230 ML IV SCH (12:00)
== END 2023-10-31 13:15 | disposition home or self-care (01) ==
LOC: ED 23:02 → INTOOBSV 10-30 04:23 → EDINP 10-30 04:23 → SUATTDRO 10-30 04:23 → 2E 10-30 06:29
DX: W19.XXXA Unspecified fall, initial encounter; I51.9 Heart disease, unspecified; S09.90XA Unspecified injury of head, initial encounter; I25.5 Ischemic cardiomyopathy; Y92.89 Other specified places as the place of occurrence of the external cause; R53.1 Weakness; Z79.899 Other long term (current) drug therapy; I21.4 Non-ST elevation (NSTEMI) myocardial infarction; I34.0 Nonrheumatic mitral (valve) insufficiency; R79.89 Other specified abnormal findings of blood chemistry; I11.9 Hypertensive heart disease without heart failure; U07.1 COVID-19; E78.5 Hyperlipidemia, unspecified; N40.1 Benign prostatic hyperplasia with lower urinary tract symptoms; I25.10 Atherosclerotic heart disease of native coronary artery without angina pectoris